=== PATIENT | male | born 1955 | race Hispanic/Latino ===

== ENCOUNTER 2017-12-21 07:24 | Day surgery (SDC) | payer OTHER ==
[2017-12-20 13:29] VITALS: BMI 39.5
--- NOTE | 2017-12-21 01:15 | HP ---
SHORT STAY HISTORY AND PHYSICAL DATE OF ADMISSION: 12/21/2017 HISTORY OF PRESENT ILLNESS: This is a 62-year-old male comes for colonoscopy for colon cancer screen ing. The patient has no specific GI symptoms. His bowel movements are regular. No family history o f colon cancer. ALLERGIES: ASPIRIN and GABAPENTIN. MEDICAL ILLNESSES: 1. Hypertension. 2. Arthritis. 3. Seasonal allergies. 4. Hyperlipidemia. SOCIAL HISTORY: The patient does not smoke or drink alcohol. PHYSICAL EXAMINATION: VITAL SIGNS: Pulse is 70, blood pressure 130/80. HEENT: Conjunctivae clear. CARDIOVASCULAR SYSTEM: First and second heart sounds normal. LUNGS: Clear to auscultation. ABDOMEN: Soft to palpate. No organomegaly. No tenderness. No masses. EXTREMITIES: Reveal no edema. ADMITTING DIAGNOSIS: A 62-year-old male comes for colonoscopy for colon cancer screening.
--- NOTE | 2017-12-21 11:41 | OP ---
DATE OF PROCEDURE: 12/21/2017 SURGEON: Carolyn Lee M.D. OPERATIVE PROCEDURE: Colonoscopy with biopsy. PREOPERATIVE DIAGNOSIS: This is a 62-year-old male undergoing colonoscopy for colon cancer screening . POSTOPERATIVE DIAGNOSES: 1. Mild sigmoid diverticular disease. 2. Small sessile sigmoid polyp. 3. Hemorrhoids. PROCEDURE NOTE: The patient was placed on his left lateral position and was given sedation by Anesth esia Department. A rectal exam was done before the scope was advanced into the rectum. No lesion fe lt on rectal exam. A Pentax video colonoscope was introduced in the rectum and advanced down to the cecum. The prep was actually good except he had some liquid fecal residue throughout the colon. Theodore er was used to wash out. The mucosa appeared normal throughout the colon. The appendiceal orifice, ileocecal valve, cecum well seen. No pathology seen. The ascending colon, hepatic flexure, no path ology seen. The transverse colon, splenic flexure, and descending colon, no pathology seen. The sig moid colon showed mild diverticular disease. A small sessile sigmoid polyp removed with biopsy. Rec sierra showed hemorrhoids. DISCHARGE PLANNING: This is a 62-year-old [place] male who came for a colonoscopy for colon c ancer screening. On colonoscopy he had a small sessile sigmoid polyp. DISCHARGE RECOMMENDATIONS: 1. The patient advised to call me if he develops abdominal pain, hematochezia. 2. High-fiber diet. 3. To come back to the office in 2 weeks.
[2017-12-21] MEDS ORDERED: Lidocaine 1% PF 5 ML VIAL ONE (15:09)
[2017-12-21] MEDS ORDERED: PROPOFOL 200 MG/20 ML VIAL ONE (15:09)
== END 2017-12-21 10:47 | disposition home or self-care (01) ==
LOC: SDC 07:24
PROVIDERS: ATTEND Internal Medicine Gastroenterology
PROC: 0DBN8ZX Excision of Sigmoid Colon, Via Natural or Artificial Opening Endoscopic, Diagnostic (ICD-10-PCS; principal; 2017-12-21)
DX: Z12.11 Encounter for screening for malignant neoplasm of colon (principal); K63.5 Polyp of colon; K57.30 Diverticulosis of large intestine without perforation or abscess without bleeding; K64.4 Residual hemorrhoidal skin tags; I10 Essential (primary) hypertension; M19.90 Unspecified osteoarthritis, unspecified site; E78.5 Hyperlipidemia, unspecified; E66.9 Obesity, unspecified; Z68.39 Body mass index [BMI] 39.0-39.9, adult; Z87.891 Personal history of nicotine dependence; Z79.1 Long term (current) use of non-steroidal anti-inflammatories (NSAID); Z79.899 Other long term (current) drug therapy; Z88.8 Allergy status to other drugs, medicaments and biological substances
CPT/HCPCS: 88305; J2001; J2704

== ENCOUNTER 2018-09-14 08:06 | Outpatient (CLI) | payer OTHER ==
[2018-09-14 14:52] LABS: Bilirubin Negative (Negative); Blood, Urine Negative (Negative); Clarity CLEAR (Clear); Glucose, Urine (Dipstick) Negative (Negative); Leukocyte Negative (Negative); Nitrite Negative (Negative); Protein, Urine (Dipstick) Negative (Neg-Trace); Specific Gravity, Urine 1.006 (1.002-1.036); pH, Urine 7.5 (5.0-9.0)
[2018-09-14 14:57] LABS: Bacteria/HPF None Seen HPF (None Seen); Hyaline Casts/LPF 0-3 HYALINE CAST LPF (0-3 Hyaline); RBC/HPF 0-3 HPF (0-3); Squamous Epithelial None Seen HPF (0-3); WBC/HPF None Seen HPF (0-3)
== END 2018-09-14 08:07 | disposition home or self-care (01) ==
LOC: LABBT 08:06
PROVIDERS: ATTEND Orthopaedic Surgery
DX: Z01.818 Encounter for other preprocedural examination (principal); M16.11 Unilateral primary osteoarthritis, right hip
CPT/HCPCS: 81001; 87081; 93005; 93010

== ENCOUNTER 2018-09-14 13:15 | Inpatient (IN) | payer OTHER ==
[2018-09-14 12:48] VITALS: BMI 38.0
--- NOTE | 2018-09-21 09:49 | HP ---
HISTORY OF PRESENT ILLNESS: The patient is a 63-year-old male with several year history of progressive right hip pain without injury. He has had a progressive pain despite rest, restriction of activities, anti-inflammatory medications, and use of a cane. The pain is now interfering with day-to-day activities including walking, getting dressed, and sleeping. PAST MEDICAL HISTORY: He has had 2 low back surgeries in [place] in 1985 and in 2016. He continues to have some chronic back pain. He has had a previous total knee replacement. He has a history of arthritis and hypertension. CURRENT MEDICATIONS: Include: 1. Amlodipine. 2. Lipitor. 3. Lisinopril. 4. Tramadol. 5. Gabapentin. 6. Meloxicam. ALLERGIES: HE IS ALLERGIC TO ASPIRIN WHICH CAUSES SHORTNESS OF BREATH, BUT HE HAS NO PROBLEM TOLERATING MELOXICAM. FAMILY HISTORY: Otherwise unremarkable. SOCIAL HISTORY: Otherwise unremarkable. REVIEW OF SYSTEMS: Otherwise unremarkable. He is currently unemployed because of chronic back pain and progressive problems with his right hip. PHYSICAL EXAMINATION: GENERAL: Reveals a healthy male. HEENT: Unremarkable. NECK: Supple. CHEST: Clear. HEART: Regular rate and rhythm. ABDOMEN: Soft and nontender. RECTAL AND GENITAL: Deferred. EXTREMITIES: Pertinent findings related to the right hip: The right leg is 1 cm short. There is tenderness in the anterior and posterior hip. There is decreased range of motion and groin pain with internal rotation of the right hip. There is a right antalgic gait and also Trendelenburg gait. NEUROVASCULAR: Intact. Straight leg raising is negative. DIAGNOSTIC STUDIES: X-rays of the right hip reveal severe DJD with no joint space remaining with slight lateral subluxation of the femoral head. IMPRESSION: 1. Degenerative arthritis, right hip. 2. History of hypertension. 3. Status post lumbar back surgery. PLAN: Right total hip replacement. The nature of the surgery, length, recovery, and potential complications such as infection, loss of motion, incomplete relief, neurovascular injury, thromboembolic phenomenon, leg length discrepancy, possible transfusion, and need for revision have been discussed in detail. Job ID: [id number]
[2018-09-25] MEDS ORDERED: Sodium Chloride 0.9% 100 ML ONE (07:36)
[2018-09-25] MEDS ORDERED: CEFAZOLIN 2 GM/50 ML BAG ONE (07:36)
[2018-09-25] MEDS ORDERED: Tranexamic Acid 1,000 MG/10 ML VIAL ONE ×2 (07:36→12:14)
[2018-09-25] MEDS ORDERED: Vancomycin HCl 1.5 GM in Sodium Chloride 0.9% 250 ML 300 ML IVPB SCH ×2 (07:45→20:00)
[2018-09-25] MEDS ORDERED: CEFAZOLIN 2 GM/50 ML-DEXTROSE 2 GM in Premix Bag 1 BAG IVPB SCH (07:45)
[2018-09-25] MEDS ORDERED: Midazolam HCl 2 mg/2 ml Vial ONE (07:51)
[2018-09-25] MEDS ORDERED: Fentanyl 100 MCG/2 ML VIAL ONE ×4 (07:51→12:33)
[2018-09-25] MEDS ORDERED: Hydrocerin (Eucerin) Cream 120 gm Jar TOP PRN (08:45)
[2018-09-25] MEDS ORDERED: Zolpidem Tartrate 5 MG TAB PO PRN ×2 (08:45→13:18)
[2018-09-25] MEDS ORDERED: Promethazine HCl 25 MG SUPP PR PRN (08:45)
[2018-09-25] MEDS ORDERED: Ondansetron PF 4 MG/2 ML Vial IVP PRN ×2 (08:45→13:18)
[2018-09-25] MEDS ORDERED: HYDROcodone/Acetaminophen 5/325 mg Tablet PO PRN (08:45)
[2018-09-25] MEDS ORDERED: Naloxone HCl 0.4 mg/ml Vial IVP PRN (08:45)
[2018-09-25] MEDS ORDERED: diphenhydrAMINE 50 MG/ML VIAL IM PRN (08:45)
[2018-09-25] MEDS ORDERED: Naloxone HCl 0.4 mg/ml Vial IV PRN (08:45)
[2018-09-25] MEDS ORDERED: diphenhydrAMINE 50 MG/ML VIAL IVP PRN (08:45)
[2018-09-25] MEDS ORDERED: Bupivacaine 0.25% 10 ML VIAL EPIDURAL PRN (08:45)
[2018-09-25] MEDS ORDERED: traMADol HCl 50 MG TAB PO PRN ×3 (08:45→13:18)
[2018-09-25] MEDS ORDERED: Promethazine HCl 25 MG/ML VIAL IM PRN (08:45)
[2018-09-25] MEDS ORDERED: Ropivacaine 0.2% HCl/PF 20 ML ONE (10:00)
[2018-09-25] MEDS ORDERED: Ketorolac Tromethamine 30 MG/ML VIAL IVP SCH (12:00)
[2018-09-25] MEDS ORDERED: Tranexamic Acid 1,000 MG in Sodium Chloride 0.9% 100 ML IVPB SCH ×2 (12:15→13:18)
--- NOTE | 2018-09-25 12:35 | OP ---
DATE OF PROCEDURE: 09/25/2018 COOK MAYONNAISE: Kim Russell PA-C ANESTHESIA: General plus epidural. PREOPERATIVE DIAGNOSIS: Degenerative arthritis, right hip. POSTOPERATIVE DIAGNOSIS: Degenerative arthritis, right hip. PROCEDURES: Right total hip replacement with uncemented Mary Trident PSL acetabular component, 54 mm with X3 polyethylene insert and uncemented Mary Accolade femoral stem 4.5 with 132 degree neck angle trunnion and 36 mm -5 mm neck length delta ceramic femoral head. DESCRIPTION OF PROCEDURE: After satisfactory anesthesia was induced in supine position, sequential compression devices were placed on the nonoperative leg throughout the procedure. The patient was then placed in lateral decubitus position. This position was held with the hip positioning device. The patient's right hip was then prepped and draped in routine sterile fashion. The hip was approached through a lateral curvilinear incision centered over the greater trochanter, carried down through subcutaneous tissues and bleeding points were controlled with the Bovie cautery. IT band and gluteal fascia were split in-line with the skin incision. A direct lateral approach to the hip joint was accomplished by dividing the anterior third of the gluteus medius and minimus tendons with Bovie cautery and flexing this as a single flap anteriorly and medially along with the vastus lateralis. Anterior capsulectomy was performed and hip was dislocated anteriorly. There was marked degenerative arthritis of the hip with large area of exposed bone. The femoral neck was osteotomized with the oscillating saw using a trial prosthesis as a guide. The acetabulum was exposed and cleaned of all soft tissue and debris and rim osteophytes. It was then reamed in sequence down to bleeding subchondral bone to a total of 54 mm. It was felt that a 54 mm Trident PSL outer shell to place in a press-fit fashion. The permanent outer shell was then hammered in position. There was good fit stability at the outer rim and the next X3 polyethylene insert was snapped into position and the proximal femur was exposed. It was opened with a box osteotome and rasped in sequence to accept a 4.5 Accolade femoral rasp. Trial reduction with the 132-degree neck angle trunnion and then -5 mm neck length 36 mm head gave appropriate size fit and stability. The hip was again dislocated anteriorly and the trial components were removed. The permanent 4.5 Accolade femoral stem was then hammered in position. There were again good fit and stability of the component. The permanent -5 mm neck length 36 mm delta ceramic head was then placed on the trunnion and the hip was again reduced and found to be stable. The hip was copiously irrigated with the pulsatile lavage. The abductors were repaired with interrupted #2 Vicryl. IT-band and gluteal fascia were closed with interrupted #2 Vicryl and a running #2 Quill. Subcutaneous tissues were closed with a running 0 Quill suture and the skin was closed with running subcuticular 3-0 Monoderm and SurgiSeal skin adhesive. Sterile dressing was applied and the patient was turned to the supine position with a pillow placed between his legs. Sequential compression devices were applied to the operated leg. He was awakened, taken to the Recovery Room in stable condition. There were no apparent intraoperative complications. The estimated blood loss was 250 mL. Job ID: [id number]
[2018-09-25] MEDS ORDERED: Fentanyl 100 MCG/2 ML VIAL SLOW IVP PRN ×2 (13:18)
[2018-09-25] MEDS ORDERED: Promethazine HCl 25 MG/ML VIAL SLOW IVP PRN (13:18)
[2018-09-25] MEDS ORDERED: diphenhydrAMINE 25 MG CAP PO PRN (13:18)
[2018-09-25] MEDS ORDERED: HYDROcodone/Acetaminophen 10/325 mg Tablet PO PRN ×2 (13:18)
[2018-09-25] MEDS ORDERED: CEFAZOLIN/Water 2 GM/20 ML SYRINGE SLOW IVP SCH (13:18)
--- NOTE | 2018-09-25 13:29 | RAD ---
RIGHT HIP 2 VIEWS: Date: 09/25/18 HISTORY: Right hip osteoarthritis, hip replacement. FINDINGS/IMPRESSION: There are recent postop changes of total hip arthroplasty in good position and alignment. Soft tissue air is present. POS: C
[2018-09-25] MEDS: Gabapentin 300 MG CAP PO SCH ×2 (15:24→20:46)
[2018-09-25] MEDS: CEFAZOLIN 2 GM/50 ML-DEXTROSE 2 GM in Premix Bag 1 BAG IVPB SCH ×2 (15:24→23:47)
[2018-09-25] MEDS: diphenhydrAMINE 25 MG CAP PO PRN ×3 (15:30→20:59)
[2018-09-25] MEDS ORDERED: Lidocaine 1% PF 5 ML VIAL ONE (15:39)
[2018-09-25] MEDS ORDERED: Glycopyrrolate 0.2 MG/ML 5 ML SYRINGE ONE (15:39)
[2018-09-25] MEDS ORDERED: Rocuronium Bromide 10 MG/ML (10ML VIAL) ONE (15:39)
[2018-09-25] MEDS ORDERED: ePHEDrine 50 MG/ML VIAL ONE (15:39)
[2018-09-25] MEDS ORDERED: Ondansetron PF 4 MG/2 ML Vial ONE (15:39)
[2018-09-25] MEDS ORDERED: PROPOFOL 200 MG/20 ML VIAL ONE (15:39)
[2018-09-25] MEDS: Sodium Chloride 0.9% 1,000 ML IV SCH ×2 (18:17→23:42)
[2018-09-25] MEDS: Ferrous Gluconate 324 MG TAB PO SCH (20:46)
[2018-09-25] MEDS: Atorvastatin Calcium 20 MG TAB PO SCH (20:46)
[2018-09-25] MEDS: Senokot S 8.6-50 MG TAB PO SCH (20:46)
[2018-09-25] MEDS ORDERED: Lisinopril 5 MG TAB PO SCH (21:00)
[2018-09-25] MEDS ORDERED: Lisinopril 20 MG TAB PO SCH (21:00)
[2018-09-25] MEDS: Acetaminophen 325 MG TAB PO PRN (23:42)
[2018-09-26] MEDS: Fentanyl/Bupivacaine 100 ML EPIDURAL SCH (01:58)
[2018-09-26] MEDS: diphenhydrAMINE 25 MG CAP PO PRN ×2 (02:00→05:36)
[2018-09-26] MEDS: Acetaminophen 325 MG TAB PO PRN (03:51)
[2018-09-26 04:56] LABS: Hemoglobin 11.1 g/dL (14.0-18.0); Mean Corpuscular HGB CONC 32.1 g/dL (32.0-36.0); Mean Corpuscular Hemoglobin 30.8 pg (27.0-31.0); Mean Corpuscular Volume 96.1 fL (78.0-98.0); Mean Platelet Volume 8.3 fL (7.4-10.4); Platelet Count 172 thou/uL (130-400); RBC Distribution Width 12.7 % (11.5-14.5); Red Blood Cell (RBC) Count 3.58 mill/uL (4.70-6.10)
[2018-09-26] MEDS: Sodium Chloride 0.9% 1,000 ML IV SCH ×2 (08:49→17:53)
[2018-09-26] MEDS: Ubidecarenone 50 MG CAP PO SCH (08:49)
[2018-09-26] MEDS: Senokot S 8.6-50 MG TAB PO SCH ×2 (08:50→20:36)
[2018-09-26] MEDS: Multivitamin W/ Minerals 1 TAB PO SCH (08:50)
[2018-09-26] MEDS: Gabapentin 300 MG CAP PO SCH ×3 (08:50→20:36)
[2018-09-26] MEDS: Ferrous Gluconate 324 MG TAB PO SCH ×2 (08:51→20:36)
[2018-09-26] MEDS ORDERED: UBIDECARENONE 100 MG PO SCH (09:00)
[2018-09-26] MEDS ORDERED: Enoxaparin Sodium 40 MG/0.4 ML SYRINGE SC SCH (09:00)
[2018-09-26] MEDS ORDERED: Amlodipine 10 MG TAB PO SCH (09:00)
[2018-09-26] MEDS: HYDROcodone/Acetaminophen 5/325 mg Tablet PO PRN ×4 (09:55→23:00)
[2018-09-26] MEDS: Atorvastatin Calcium 20 MG TAB PO SCH (20:36)
[2018-09-27] MEDS: Fentanyl/Bupivacaine 100 ML EPIDURAL SCH (00:47)
[2018-09-27] MEDS: Sodium Chloride 0.9% 1,000 ML IV SCH ×2 (02:14→11:01)
[2018-09-27] MEDS: HYDROcodone/Acetaminophen 5/325 mg Tablet PO PRN ×3 (04:00→13:38)
[2018-09-27] MEDS: Multivitamin W/ Minerals 1 TAB PO SCH (09:02)
[2018-09-27] MEDS: Gabapentin 300 MG CAP PO SCH ×2 (09:08→15:40)
[2018-09-27] MEDS: Senokot S 8.6-50 MG TAB PO SCH (09:08)
[2018-09-27] MEDS: Ubidecarenone 50 MG CAP PO SCH (09:08)
[2018-09-27] MEDS: Ferrous Gluconate 324 MG TAB PO SCH (09:08)
[2018-09-27 11:41] VITALS: BP 143/78; TEMP 98.6
--- NOTE | 2018-09-27 12:34 | DIS ---
DATE OF ADMISSION: 09/25/2018 DATE OF DISCHARGE: 09/27/2018 PREOPERATIVE DIAGNOSIS: Right hip degenerative arthritis. POSTOPERATIVE DIAGNOSIS: Right hip degenerative arthritis. PROCEDURE PERFORMED: Right total hip replacement. BRIEF HOSPITAL COURSE: This is a 63-year-old male, who completed conservative management for right hip pain. He was found to have degenerative changes in his right hip. He was indicated for the above-mentioned procedure after failing conservative management. The surgery went well. The patient was admitted postoperatively to the surgical floor and to [facility], where he worked with physical therapist and occupational therapist and received adequate pain control from Anesthesiology. He also received postoperative antibiotics. The patient did well. No complications were incurred during his hospital stay. On postoperative day #2, he was discharged home. DISCHARGE DISPOSITION: Home with outpatient physical therapy. DISCHARGE CONDITION: Stable. DISCHARGE INSTRUCTIONS: The patient will follow up with Dr. Mera as scheduled. He will follow up with outpatient physical therapy as scheduled. He will keep his incision clean, dry, and bandage intact until followup. DISCHARGE MEDICATIONS: See MAR. Job ID: [id number]
== END 2018-09-27 15:43 | disposition home or self-care (01) | DRG 470 ==
LOC: SURG A 09-25 06:41 → EDSTATUS 09-25 13:15 → SJJU 09-25 13:24
PROVIDERS: ADMIT Orthopaedic Surgery; ATTEND Orthopaedic Surgery
PROC: 0SR902A Replacement of Right Hip Joint with Metal on Polyethylene Synthetic Substitute, Uncemented, Open Approach (ICD-10-PCS; principal; 2018-09-25)
DX: M16.11 Unilateral primary osteoarthritis, right hip (principal); I10 Essential (primary) hypertension
CPT/HCPCS: 36415; 85027; J1200; J1650; J2001; J2250; J2405; J2704; J2795; J3010; J3370; J3490; J7050; Q0163

== ENCOUNTER 2018-09-19 10:59 | Outpatient (CLI) | payer OTHER ==
[2018-09-19 12:50] LABS: #Eosinphils 0.4 thou/uL (0.0-0.7); #Lymphocytes 2.5 thou/uL (1.20-3.40); #Monocytes 0.6 thou/uL (0.11-0.59); #Neutrophils 3.3 thou/uL (1.40-6.50); %Basophils 0.2 % (0.0-1.0); %Eosinophils 6.2 % (0.0-10.0); %Lymphocytes 36.5 % (21.0-51.0); %Monocytes 8.7 % (0.0-10.0); %Neutrophils 48.3 % (42.0-75.0); Hemoglobin 14.3 g/dL (14.0-18.0); Mean Corpuscular HGB CONC 32.7 g/dL (32.0-36.0); Mean Corpuscular Hemoglobin 30.7 pg (27.0-31.0); Mean Corpuscular Volume 93.7 fL (78.0-98.0); Mean Platelet Volume 8.6 fL (7.4-10.4); Platelet Count 207 thou/uL (130-400); RBC Distribution Width 12.6 % (11.5-14.5); Red Blood Cell (RBC) Count 4.65 mill/uL (4.70-6.10); White Blood Cell (WBC) Count 6.8 thou/uL (4.8-10.8)
[2018-09-19 12:55] LABS: INR-International Normal Ratio 1.1
[2018-09-19 13:21] LABS: Anion Gap 16 mmol/L (10-20); BUN (Urea Nitrogen) 14 mg/dL (8.4-25.7); Calc. Creatinine Clearance 0 mL/min (70-130); Carbon Dioxide 22 mmol/L (23-31); Chloride 107 mmol/L (98-107); Estimated GFR-MDRD 90; Glucose 86 mg/dL (80-115); Potassium 4.4 mmol/L (3.5-5.1); Sodium 141 mmol/L (136-145)
== END 2018-09-19 11:00 | disposition home or self-care (01) ==
LOC: LABBT 10:59
PROVIDERS: ATTEND Orthopaedic Surgery
DX: Z01.812 Encounter for preprocedural laboratory examination (principal); M16.11 Unilateral primary osteoarthritis, right hip
CPT/HCPCS: 80048; 85025; 85610; 86850; 86900; 86901